=== PATIENT | female | born 1945 | race Two or more races ===

== ENCOUNTER 2023-07-02 10:45 | Inpatient (IN) | payer OTHER ==
[~2023-07-02] VITALS: Ht 160 cm; Wt 68.0 kg
[2023-07-02] MEDS ORDERED: DILTIAZEM ER120 M2 PO (13:29)
[2023-07-02] MEDS ORDERED: DIOVAN160 M1 PO (13:29)
[2023-07-02] MEDS ORDERED: NAMENDA XR28 MG PO (13:30)
[2023-07-02] MEDS ORDERED: LIPITOR20 MG PO (13:30)
[2023-07-02] MEDS ORDERED: XANAX XR0.5 MG PO (13:30)
[2023-07-02] MEDS ORDERED: METFORMIN HCL500 M3 PO (13:31)
[2023-07-02] MEDS ORDERED: AMBIEN10 MG PO (13:31)
[2023-07-07 07:05] LABS: HEMATOCRIT 38.4 % (36.0-45.00); HEMOGLOBIN 12.4 g/dL (12.0-15.00); MEAN CELL VOLUME 87.7 fL (80.00-100.00); MEAN CORPUSCULAR HEMOGLOBIN 28.4 pg (27.00-32.0); MEAN CORPUSCULAR HGB CONC 32.4 g/dl (32.0-36.0); PLATELET COUNT 336 K/uL (150-450); RED BLOOD COUNT 4.38 M/uL (4.00-6.00); RED CELL DISTRIBUTION WIDTH 15.9 % (11.5-14.5)
[2023-07-07 07:16] LABS: INR 0.94; PROTHROMBIN TIME 9.9 SECONDS (9.0-11.5)
[2023-07-07 07:45] LABS: ALBUMIN 3.1 gm/dL (3.4-5.0); BILIRUBIN TOTAL 0.71 mg/dL (0.3-1.2); CALCIUM 9.1 mg/dL (8.5-10.1); CREATININE SERUM 0.93 mg/dL (0.55-1.02); GFR 58.46; POTASSIUM 4.67 mEq/L (3.5-5.1); TOTAL PROTEIN 6.1 gm/dL (6.4-8.2)
[2023-07-07 08:10] LABS: TSH 1.26 uIU/mL (0.358-3.74)
[2023-07-07 18:11] LABS: HEMOGLOBIN 13.4 g/dL (12.0-15.00); MEAN CELL VOLUME 87.5 fL (80.00-100.00); MEAN CORPUSCULAR HEMOGLOBIN 29.2 pg (27.00-32.0); MEAN CORPUSCULAR HGB CONC 33.4 g/dl (32.0-36.0); PLATELET COUNT 324 K/uL (150-450); RED BLOOD COUNT 4.57 M/uL (4.00-6.00); RED CELL DISTRIBUTION WIDTH 16.3 % (11.5-14.5)
[2023-07-07 18:18] LABS: ALBUMIN 3.1 gm/dL (3.4-5.0); CALCIUM 8.8 mg/dL (8.5-10.1); CREATININE SERUM 0.95 mg/dL (0.55-1.02); GFR 57.04; MAGNESIUM 1.8 mg/dL (1.8-2.4); PHOSPHOROUS 3.8 mg/dL (2.5-4.9); POTASSIUM 4.08 mEq/L (3.5-5.1)
[2023-07-08 04:04] LABS: ABG PH 7.452 (7.35-7.45); ABG PO2 103.6 mmHg (80-100); ABG pCO2 38.2 mmHg (35-45); BASE EXCESS 2.2 mmol/l; SaO2 98.3 %; Tco2 27.2 mmol/l; allen test SATISFACTORY; o2 32 %; puncture site RADIAL RIGHT
[2023-07-08 06:54] LABS: URINE APPEARANCE Clear; URINE BILIRRUBIN Negative (NEGATIVE); URINE BLOOD Negative; URINE COLOR Yellow; URINE GLUCOSE Negative (NEGATIVE); URINE LEUKOCYTE Trace; URINE NITRATE Negative; URINE PROTEIN Negative (NEGATIVE); URINE UROBILINOGEN 0.2 E.U./dl
[2023-07-08 06:55] LABS: URINE BACTERIA 62.9 uL (0.0-1933); URINE EPITHELIAL CELLS 13.7 uL (0.0-38.8); URINE RBC 9.4 uL (0.0-20.8); URINE WBC 123.7 uL (0.0-23.2)
[2023-07-08 08:26] LABS: HEMATOCRIT 37.5 % (36.0-45.00); HEMOGLOBIN 12.1 g/dL (12.0-15.00); MEAN CELL VOLUME 87.9 fL (80.00-100.00); MEAN CORPUSCULAR HEMOGLOBIN 28.4 pg (27.00-32.0); MEAN CORPUSCULAR HGB CONC 32.3 g/dl (32.0-36.0); PLATELET COUNT 276 K/uL (150-450); RED BLOOD COUNT 4.27 M/uL (4.00-6.00)
[2023-07-08 08:48] LABS: ALBUMIN 2.7 gm/dL (3.4-5.0); CALCIUM 8.3 mg/dL (8.5-10.1); CREATININE SERUM 0.77 mg/dL (0.55-1.02); GFR 72.69; MAGNESIUM 1.7 mg/dL (1.8-2.4); PHOSPHOROUS 3.4 mg/dL (2.5-4.9); POTASSIUM 3.98 mEq/L (3.5-5.1)
[2023-07-09 06:37] LABS: HEMATOCRIT 38.3 % (36.0-45.00); HEMOGLOBIN 12.2 g/dL (12.0-15.00); MEAN CELL VOLUME 88.9 fL (80.00-100.00); MEAN CORPUSCULAR HEMOGLOBIN 28.3 pg (27.00-32.0); MEAN CORPUSCULAR HGB CONC 31.8 g/dl (32.0-36.0); PLATELET COUNT 276 K/uL (150-450); RED BLOOD COUNT 4.31 M/uL (4.00-6.00); RED CELL DISTRIBUTION WIDTH 16.3 % (11.5-14.5)
[2023-07-09 07:04] LABS: CALCIUM 8.8 mg/dL (8.5-10.1); CREATININE SERUM 0.81 mg/dL (0.55-1.02); GFR 68.56; MAGNESIUM 2.4 mg/dL (1.8-2.4); PHOSPHOROUS 2.5 mg/dL (2.5-4.9); POTASSIUM 3.88 mEq/L (3.5-5.1)
[2023-07-11 07:12] LABS: CALCIUM 8.7 mg/dL (8.5-10.1); CREATININE SERUM 0.69 mg/dL (0.55-1.02); GFR 82.5; MAGNESIUM 1.8 mg/dL (1.8-2.4); POTASSIUM 3.46 mEq/L (3.5-5.1)
[2023-07-11 07:53] LABS: PHOSPHOROUS 1.8 mg/dL (2.5-4.9)
[2023-07-12 08:07] LABS: ALBUMIN 2.4 gm/dL (3.4-5.0); CALCIUM 8.5 mg/dL (8.5-10.1); CREATININE SERUM 0.75 mg/dL (0.55-1.02); GFR 74.93; MAGNESIUM 1.7 mg/dL (1.8-2.4); POTASSIUM 4.16 mEq/L (3.5-5.1)
[2023-07-12 08:58] LABS: HEMATOCRIT 33.6 % (36.0-45.00); HEMOGLOBIN 11.1 g/dL (12.0-15.00); MEAN CELL VOLUME 88.2 fL (80.00-100.00); MEAN CORPUSCULAR HEMOGLOBIN 29.2 pg (27.00-32.0); MEAN CORPUSCULAR HGB CONC 33.1 g/dl (32.0-36.0); PLATELET COUNT 216 K/uL (150-450); RED BLOOD COUNT 3.81 M/uL (4.00-6.00)
[2023-07-17] MEDS ORDERED: DILTIAZEM ER120 M2 PO (12:33)
[2023-07-17] MEDS ORDERED: INTESTINEX680 M2 PO (12:33)
[2023-07-17] MEDS ORDERED: QUESTRAN LIGHT210 GM PO (12:33)
[2023-07-17] MEDS ORDERED: LIPITOR20 MG PO (12:33)
[2023-07-17] MEDS ORDERED: NAMENDA XR28 MG PO (12:33)
[2023-07-17] MEDS ORDERED: TRAMADOL HCL50 MG PO (12:33)
[2023-07-17] MEDS ORDERED: PROTONIX40 MG PO (12:33)
[2023-07-17] MEDS ORDERED: HYOSCYAMINE0.125 M1 SL (12:33)
== END 2023-07-17 12:41 | disposition home or self-care (01) | DRG 330 ==
LOC: EDUNIT# 10:45 → SURG 07-05 11:51 → SURH 07-05 11:51 → SURG 07-07 09:00
PROVIDERS: Specialist; Surgery; ADMIT Internal Medicine Geriatric Medicine; ATTEND Internal Medicine Geriatric Medicine
PROC: 30233N1 Transfusion of Nonautologous Red Blood Cells into Peripheral Vein, Percutaneous Approach (ICD-10-PCS; 2023-07-05)
PROC: 07BB4ZZ Excision of Mesenteric Lymphatic, Percutaneous Endoscopic Approach (ICD-10-PCS; 2023-07-07)
PROC: 0DTL4ZZ Resection of Transverse Colon, Percutaneous Endoscopic Approach (ICD-10-PCS; principal; 2023-07-07 09:00)
PROC: 4A12X4Z Monitoring of Cardiac Electrical Activity, External Approach (ICD-10-PCS; 2023-07-08)
PROC: BW21YZZ Computerized Tomography (CT Scan) of Abdomen and Pelvis using Other Contrast (ICD-10-PCS; 2023-07-14)
DX: C18.5 Malignant neoplasm of splenic flexure (principal); N39.0 Urinary tract infection, site not specified; B96.20 Unspecified Escherichia coli [E. coli] as the cause of diseases classified elsewhere; I11.0 Hypertensive heart disease with heart failure; E11.9 Type 2 diabetes mellitus without complications; Z79.4 Long term (current) use of insulin; R15.9 Full incontinence of feces; D64.9 Anemia, unspecified; E78.49 Other hyperlipidemia; E78.00 Pure hypercholesterolemia, unspecified; G30.9 Alzheimer's disease, unspecified; F02.80 Dementia in other diseases classified elsewhere, unspecified severity, without behavioral disturbance, psychotic disturbance, mood disturbance, and anxiety

== ENCOUNTER 2023-07-02 10:57 | Outpatient (CLI) | payer OTHER ==
[2023-07-02] MEDS ORDERED: DILTIAZEM ER120 M2 PO (13:29)
[2023-07-02] MEDS ORDERED: DIOVAN160 M1 PO (13:29)
[2023-07-02] MEDS ORDERED: LIPITOR20 MG PO (13:30)
[2023-07-02] MEDS ORDERED: NAMENDA XR28 MG PO (13:30)
[2023-07-02] MEDS ORDERED: XANAX XR0.5 MG PO (13:30)
[2023-07-02] MEDS ORDERED: AMBIEN10 MG PO (13:31)
[2023-07-02] MEDS ORDERED: METFORMIN HCL500 M3 PO (13:31)
== END 2023-07-02 11:07 | disposition home or self-care (01) ==
LOC: RAD 10:57
PROVIDERS: ATTEND Surgery
DX: R15.9 Full incontinence of feces (principal); C18.5 Malignant neoplasm of splenic flexure; D37.4 Neoplasm of uncertain behavior of colon; D12.2 Benign neoplasm of ascending colon; D12.0 Benign neoplasm of cecum

== ENCOUNTER 2023-07-22 22:21 | Inpatient (IN) | payer OTHER ==
[~2023-07-22] VITALS: Ht 160 cm; Wt 63.5 kg
[~2023-07-22 22:21] MED LIST: AMBIEN10 MG PO; DILTIAZEM ER120 M2 PO; DIOVAN160 M1 PO; HYOSCYAMINE0.125 M1 SL; INTESTINEX680 M2 PO; LIPITOR20 MG PO; METFORMIN HCL500 M3 PO; NAMENDA XR28 MG PO; PROTONIX40 MG PO; QUESTRAN LIGHT210 GM PO; TRAMADOL HCL50 MG PO; XANAX XR0.5 MG PO
[2023-07-23 00:02] LABS: PH,URINE 5.5 (5.0-8.0); URINE APPEARANCE Clear; URINE BILIRRUBIN Negative (NEGATIVE); URINE BLOOD Negative; URINE COLOR Yellow; URINE GLUCOSE Negative (NEGATIVE); URINE LEUKOCYTE Small; URINE NITRATE Negative; URINE PROTEIN Negative (NEGATIVE); URINE UROBILINOGEN 0.2 E.U./dl
[2023-07-23 00:03] LABS: URINE BACTERIA 46.5 uL (0.0-1933); URINE EPITHELIAL CELLS 7.8 uL (0.0-38.8); URINE RBC 7.4 uL (0.0-20.8)
[2023-07-23 00:51] LABS: HEMATOCRIT 37.7 % (36.0-45.00); HEMOGLOBIN 12.4 g/dL (12.0-15.00); MEAN CELL VOLUME 85.4 fL (80.00-100.00); MEAN CORPUSCULAR HEMOGLOBIN 28.1 pg (27.00-32.0); MEAN CORPUSCULAR HGB CONC 32.9 g/dl (32.0-36.0); PLATELET COUNT 723 K/uL (150-450); RED BLOOD COUNT 4.41 M/uL (4.00-6.00); RED CELL DISTRIBUTION WIDTH 16.4 % (11.5-14.5)
[2023-07-23 00:59] LABS: ALBUMIN 2.6 gm/dL (3.4-5.0); BILIRUBIN TOTAL 0.2 mg/dL (0.3-1.2); CALCIUM 8.9 mg/dL (8.5-10.1); CREATININE SERUM 0.62 mg/dL (0.55-1.02); GFR 93.34; GLOBULINA 4.4 G/DL (2.4-3.5)
[2023-07-23 01:00] LABS: INR 1.09; PARTIAL THROMBOPLASTIN TIME 26.6 SECONDS (22.0-34.0); PROTHROMBIN TIME 11.4 SECONDS (9.0-11.5)
[2023-07-23 01:15] LABS: POTASSIUM 2.61 mEq/L (3.5-5.1)
[2023-07-24 08:35] LABS: HEMATOCRIT 30.6 % (36.0-45.00); HEMOGLOBIN 10.3 g/dL (12.0-15.00); MEAN CELL VOLUME 86.6 fL (80.00-100.00); MEAN CORPUSCULAR HEMOGLOBIN 29.2 pg (27.00-32.0); MEAN CORPUSCULAR HGB CONC 33.7 g/dl (32.0-36.0); PLATELET COUNT 633 K/uL (150-450); RED BLOOD COUNT 3.54 M/uL (4.00-6.00); RED CELL DISTRIBUTION WIDTH 16.1 % (11.5-14.5)
[2023-07-24 08:38] LABS: ALBUMIN 2.2 gm/dL (3.4-5.0); BILIRUBIN TOTAL 0.18 mg/dL (0.3-1.2); CALCIUM 8.7 mg/dL (8.5-10.1); CREATININE SERUM 0.57 mg/dL (0.55-1.02); GFR 102.85; GLOBULINA 3.2 G/DL (2.4-3.5); POTASSIUM 3.46 mEq/L (3.5-5.1); TOTAL PROTEIN 5.4 gm/dL (6.4-8.2)
[2023-07-24 08:40] LABS: C-REACTIVE PROTEIN 3.53 MG/DL (0.00-0.29)
[2023-07-25 08:17] LABS: CALCIUM 8.5 mg/dL (8.5-10.1); CREATININE SERUM 0.46 mg/dL (0.55-1.02); GFR 131.72; MAGNESIUM 1.7 mg/dL (1.8-2.4); PHOSPHOROUS 2.8 mg/dL (2.5-4.9); POTASSIUM 3.4 mEq/L (3.5-5.1)
[2023-07-27 07:35] LABS: ALBUMIN 1.9 gm/dL (3.4-5.0); BILIRUBIN TOTAL 0.16 mg/dL (0.3-1.2); CREATININE SERUM 0.45 mg/dL (0.55-1.02); GFR 135.1; GLOBULINA 2.7 G/DL (2.4-3.5); POTASSIUM 3.09 mEq/L (3.5-5.1); TOTAL PROTEIN 4.6 gm/dL (6.4-8.2)
[2023-07-29 07:44] LABS: HEMATOCRIT 29.4 % (36.0-45.00); HEMOGLOBIN 9.8 g/dL (12.0-15.00); MEAN CELL VOLUME 86.4 fL (80.00-100.00); MEAN CORPUSCULAR HEMOGLOBIN 28.8 pg (27.00-32.0); MEAN CORPUSCULAR HGB CONC 33.3 g/dl (32.0-36.0); PLATELET COUNT 364 K/uL (150-450); RED CELL DISTRIBUTION WIDTH 16.6 % (11.5-14.5)
[2023-07-29 08:12] LABS: CALCIUM 8.3 mg/dL (8.5-10.1); CREATININE SERUM 0.43 mg/dL (0.55-1.02); GFR 142.38; PHOSPHOROUS 2.2 mg/dL (2.5-4.9)
[2023-07-29 08:27] LABS: MAGNESIUM 1.4 mg/dL (1.8-2.4)
[2023-07-29 08:28] LABS: POTASSIUM 2.78 mEq/L (3.5-5.1)
[2023-07-30 08:32] LABS: CALCIUM 8.2 mg/dL (8.5-10.1); CREATININE SERUM 0.46 mg/dL (0.55-1.02); GFR 131.72; MAGNESIUM 1.6 mg/dL (1.8-2.4); POTASSIUM 3.4 mEq/L (3.5-5.1)
[2023-07-30] MEDS ORDERED: IMODIUM A-D2 MG PO (13:33)
[2023-07-30] MEDS ORDERED: PROBIOTIC1 EAC4 PO (13:34)
== END 2023-07-30 14:27 | disposition home or self-care (01) | DRG 392 ==
LOC: ER 22:21 → SURG 07-23 10:37
PROVIDERS: General Practice; Internal Medicine; Internal Medicine Geriatric Medicine; ADMIT Surgery; ATTEND Surgery
PROC: BW21YZZ Computerized Tomography (CT Scan) of Abdomen and Pelvis using Other Contrast (ICD-10-PCS; principal; 2023-07-22)
PROC: 4A12X4Z Monitoring of Cardiac Electrical Activity, External Approach (ICD-10-PCS; 2023-07-23)
DX: K52.89 Other specified noninfective gastroenteritis and colitis (principal); K56.0 Paralytic ileus; C18.5 Malignant neoplasm of splenic flexure; E87.6 Hypokalemia; G30.9 Alzheimer's disease, unspecified; F02.80 Dementia in other diseases classified elsewhere, unspecified severity, without behavioral disturbance, psychotic disturbance, mood disturbance, and anxiety; Z93.2 Ileostomy status; I10 Essential (primary) hypertension

== ENCOUNTER 2023-08-12 13:45 | Inpatient (IN) | payer OTHER ==
[~2023-08-12] VITALS: Ht 152.4 cm; Wt 61.2 kg
[~2023-08-12 13:45] MED LIST changes: +IMODIUM A-D2 MG PO; +PROBIOTIC1 EAC4 PO
[2023-08-12] MEDS ORDERED: LIPITOR40 MG (14:16)
[2023-08-12] MEDS ORDERED: NAMENDA5 MG (14:16)
[2023-08-12 16:50] LABS: HEMATOCRIT 33.4 % (36.0-45.00); MEAN CELL VOLUME 86.1 fL (80.00-100.00); MEAN CORPUSCULAR HEMOGLOBIN 28.3 pg (27.00-32.0); MEAN CORPUSCULAR HGB CONC 32.9 g/dl (32.0-36.0); PLATELET COUNT 471 K/uL (150-450); RED BLOOD COUNT 3.88 M/uL (4.00-6.00); RED CELL DISTRIBUTION WIDTH 16.9 % (11.5-14.5)
[2023-08-12 17:13] LABS: CALCIUM 9.3 mg/dL (8.5-10.1); CREATININE SERUM 0.78 mg/dL (0.55-1.02); GFR 71.81; POTASSIUM 3.95 mEq/L (3.5-5.1)
[2023-08-12 18:59] LABS: PH,URINE 5.5 (5.0-8.0); URINE APPEARANCE Cloudy; URINE BILIRRUBIN Negative (NEGATIVE); URINE BLOOD Trace; URINE COLOR Yellow; URINE GLUCOSE Negative (NEGATIVE); URINE LEUKOCYTE Large; URINE NITRATE Negative; URINE PROTEIN 30 (NEGATIVE); URINE UROBILINOGEN 0.2 E.U./dl
[2023-08-12 19:00] LABS: URINE EPITHELIAL CELLS 7.5 uL (0.0-38.8); URINE RBC 19.6 uL (0.0-20.8); URINE WBC 893.1 uL (0.0-23.2)
[2023-08-12 19:02] LABS: URINE BACTERIA > 9821.5 uL (0.0-1933)
[2023-08-13 06:59] LABS: HEMATOCRIT 26.8 % (36.0-45.00); MEAN CELL VOLUME 85.4 fL (80.00-100.00); MEAN CORPUSCULAR HEMOGLOBIN 28.3 pg (27.00-32.0); MEAN CORPUSCULAR HGB CONC 33.1 g/dl (32.0-36.0); PLATELET COUNT 385 K/uL (150-450); RED BLOOD COUNT 3.14 M/uL (4.00-6.00); RED CELL DISTRIBUTION WIDTH 17.3 % (11.5-14.5)
[2023-08-13 07:01] LABS: HEMOGLOBIN 8.9 g/dL (12.0-15.00)
[2023-08-13 12:15] LABS: ALBUMIN 1.9 gm/dL (3.4-5.0); BILIRUBIN TOTAL 0.42 mg/dL (0.3-1.2); CALCIUM 8.8 mg/dL (8.5-10.1); CREATININE SERUM 0.69 mg/dL (0.55-1.02); GFR 82.72; MAGNESIUM 1.7 mg/dL (1.8-2.4); POTASSIUM 3.57 mEq/L (3.5-5.1); T4 FREE 1.47 NG/ML (0.76-1.46); TOTAL PROTEIN 5.9 gm/dL (6.4-8.2); TSH 0.646 uIU/mL (0.358-3.74)
[2023-08-14 06:48] LABS: HEMATOCRIT 28.4 % (36.0-45.00); HEMOGLOBIN 9.4 g/dL (12.0-15.00); MEAN CELL VOLUME 85.9 fL (80.00-100.00); MEAN CORPUSCULAR HEMOGLOBIN 28.4 pg (27.00-32.0); PLATELET COUNT 463 K/uL (150-450); RED CELL DISTRIBUTION WIDTH 16.9 % (11.5-14.5)
[2023-08-14 07:24] LABS: ALBUMIN 1.7 gm/dL (3.4-5.0); BILIRUBIN TOTAL 0.32 mg/dL (0.3-1.2); C-REACTIVE PROTEIN 29.9 MG/DL (0.00-0.29); CALCIUM 8.3 mg/dL (8.5-10.1); CREATININE SERUM 0.42 mg/dL (0.55-1.02); GFR 146.69; GLOBULINA 3.7 G/DL (2.4-3.5); MAGNESIUM 1.6 mg/dL (1.8-2.4); PHOSPHOROUS 2.6 mg/dL (2.5-4.9); POTASSIUM 3.23 mEq/L (3.5-5.1); TOTAL PROTEIN 5.4 gm/dL (6.4-8.2)
[2023-08-14 10:55] LABS: ABG PH 7.459 (7.35-7.45)
[2023-08-14 10:56] LABS: ABG PO2 74.6 mmHg (80-100); BICARBONATE 18.1 mmol/l (23-25); Tco2 18.9 mmol/l; allen test SATISFACTORY; o2 21 %; puncture site RADIAL LEFT
[2023-08-14 10:57] LABS: SaO2 95.5 %
[2023-08-15 19:44] LABS: HEMOGLOBIN 11.6 g/dL (12.0-15.00); MEAN CELL VOLUME 84.5 fL (80.00-100.00); MEAN CORPUSCULAR HEMOGLOBIN 28.1 pg (27.00-32.0); MEAN CORPUSCULAR HGB CONC 33.2 g/dl (32.0-36.0); PLATELET COUNT 442 K/uL (150-450); RED BLOOD COUNT 4.14 M/uL (4.00-6.00); RED CELL DISTRIBUTION WIDTH 16.9 % (11.5-14.5)
[2023-08-16 07:45] LABS: HEMATOCRIT 34.4 % (36.0-45.00); HEMOGLOBIN 11.1 g/dL (12.0-15.00); MEAN CELL VOLUME 84.4 fL (80.00-100.00); MEAN CORPUSCULAR HEMOGLOBIN 27.3 pg (27.00-32.0); MEAN CORPUSCULAR HGB CONC 32.4 g/dl (32.0-36.0); PLATELET COUNT 433 K/uL (150-450); RED BLOOD COUNT 4.08 M/uL (4.00-6.00); RED CELL DISTRIBUTION WIDTH 17.3 % (11.5-14.5)
[2023-08-16 08:46] LABS: ALBUMIN 1.6 gm/dL (3.4-5.0); BILIRUBIN TOTAL 0.21 mg/dL (0.3-1.2); CALCIUM 8.8 mg/dL (8.5-10.1); CREATININE SERUM 0.43 mg/dL (0.55-1.02); GFR 142.38; GLOBULINA 3.8 G/DL (2.4-3.5); MAGNESIUM 1.8 mg/dL (1.8-2.4); PHOSPHOROUS 3.3 mg/dL (2.5-4.9); POTASSIUM 3.92 mEq/L (3.5-5.1); TOTAL PROTEIN 5.4 gm/dL (6.4-8.2)
[2023-08-16 08:48] LABS: C-REACTIVE PROTEIN 18.1 MG/DL (0.00-0.29)
[2023-08-17 08:19] LABS: HEMATOCRIT 35.6 % (36.0-45.00); HEMOGLOBIN 11.8 g/dL (12.0-15.00); MEAN CELL VOLUME 84.6 fL (80.00-100.00); MEAN CORPUSCULAR HEMOGLOBIN 28.1 pg (27.00-32.0); MEAN CORPUSCULAR HGB CONC 33.2 g/dl (32.0-36.0); PLATELET COUNT 480 K/uL (150-450); RED BLOOD COUNT 4.21 M/uL (4.00-6.00); RED CELL DISTRIBUTION WIDTH 17.1 % (11.5-14.5)
[2023-08-17 08:54] LABS: CALCIUM 8.8 mg/dL (8.5-10.1); CREATININE SERUM 0.41 mg/dL (0.55-1.02); GFR 150.42; MAGNESIUM 1.8 mg/dL (1.8-2.4); PHOSPHOROUS 2.7 mg/dL (2.5-4.9); POTASSIUM 4.14 mEq/L (3.5-5.1)
[2023-08-18 06:43] LABS: HEMATOCRIT 39.9 % (36.0-45.00); HEMOGLOBIN 13.1 g/dL (12.0-15.00); MEAN CELL VOLUME 85.8 fL (80.00-100.00); MEAN CORPUSCULAR HEMOGLOBIN 28.1 pg (27.00-32.0); MEAN CORPUSCULAR HGB CONC 32.8 g/dl (32.0-36.0); PLATELET COUNT 592 K/uL (150-450); RED BLOOD COUNT 4.65 M/uL (4.00-6.00)
[2023-08-18 06:44] LABS: INR 1.11; PARTIAL THROMBOPLASTIN TIME 29.7 SECONDS (22.0-34.0); PROTHROMBIN TIME 11.6 SECONDS (9.0-11.5)
[2023-08-18 07:01] LABS: ALBUMIN 1.8 gm/dL (3.4-5.0); ALKALINE PHOSPHATASE 72 U/L (50-136); ALT/SGPT 10 U/L (12-78); ANION GAP 10 (10.0-20.0); AST/SGOT 6 U/L (15-37); BILIRUBIN TOTAL 0.23 mg/dL (0.3-1.2); BILIRUBIN,CONJUGATED < 0.10 mg/dL (0.0-0.2); BILIRUBIN,UNCONJUGATED 0.13 mg/dL (0.0-0.6); BLOOD UREA NITROGEN 24 mg/dL (7-18); BUN CREA RATIO 56 (7.0-25.0); CALCIUM 9.1 mg/dL (8.5-10.1); CARBON DIOXIDE 23 mEq/L (21-32); CHLORIDE 112 mmol/L (98-107); CHOL HDL RATIO 3.5 (0-5.0); CHOLESTEROL 88 mg/dL (0-200); CREATININE SERUM 0.43 mg/dL (0.55-1.02); GFR 142.38; GLOBULINA 3.5 G/DL (2.4-3.5); GLUCOSE FASTING 136 mg/dL (65-100); HDL 25 mg/dl (40-60); LDL 32 mg/dl (0-130); OSMOLALITY SERUM 287 MOSM/KG (275-295); PHOSPHOROUS 2.6 mg/dL (2.5-4.9); SODIUM 141 mmol/L (136-145); TOTAL IRON BINDING CAPACITY 171 ug/dl (250-450); TOTAL PROTEIN 5.3 gm/dL (6.4-8.2); TRIGLYCERIDES 153 mg/dL (0-150); VLDL 30 (0-39)
[2023-08-18 10:11] LABS: UREA CLEARANCE 22.9 ML/MIN
[2023-08-20 06:55] LABS: CREATININE SERUM 0.41 mg/dL (0.55-1.02); GFR 150.42; MAGNESIUM 1.5 mg/dL (1.8-2.4); PHOSPHOROUS 2.4 mg/dL (2.5-4.9); POTASSIUM 3.71 mEq/L (3.5-5.1)
[2023-08-20 07:05] LABS: HEMATOCRIT 34.8 % (36.0-45.00); HEMOGLOBIN 11.4 g/dL (12.0-15.00); MEAN CELL VOLUME 84.1 fL (80.00-100.00); MEAN CORPUSCULAR HEMOGLOBIN 27.6 pg (27.00-32.0); MEAN CORPUSCULAR HGB CONC 32.8 g/dl (32.0-36.0); PLATELET COUNT 520 K/uL (150-450); RED BLOOD COUNT 4.14 M/uL (4.00-6.00); RED CELL DISTRIBUTION WIDTH 16.3 % (11.5-14.5)
[2023-08-20 23:38] LABS: ABG PH 7.477 (7.35-7.45); ABG PO2 68.6 mmHg (80-100); ABG pCO2 35.5 mmHg (35-45); BASE EXCESS 2.5 mmol/l; BICARBONATE 25.7 mmol/l (23-25); SaO2 94.9 %; Tco2 26.8 mmol/l; allen test SATISFACTORY; o2 21 %; puncture site RADIAL LEFT
[2023-08-21 07:09] LABS: HEMOGLOBIN 11.2 g/dL (12.0-15.00); MEAN CELL VOLUME 84.2 fL (80.00-100.00); MEAN CORPUSCULAR HEMOGLOBIN 27.7 pg (27.00-32.0); MEAN CORPUSCULAR HGB CONC 32.9 g/dl (32.0-36.0); PLATELET COUNT 512 K/uL (150-450); RED BLOOD COUNT 4.04 M/uL (4.00-6.00); RED CELL DISTRIBUTION WIDTH 16.4 % (11.5-14.5)
[2023-08-21 07:23] LABS: CALCIUM 8.9 mg/dL (8.5-10.1); CREATININE SERUM 0.53 mg/dL (0.55-1.02); GFR 111.86; MAGNESIUM 1.6 mg/dL (1.8-2.4); PHOSPHOROUS 3.1 mg/dL (2.5-4.9); POTASSIUM 3.73 mEq/L (3.5-5.1)
[2023-08-21 07:34] LABS: C-REACTIVE PROTEIN 1.85 MG/DL (0.00-0.29)
[2023-08-23 08:48] LABS: HEMOGLOBIN 12.5 g/dL (12.0-15.00); MEAN CELL VOLUME 83.5 fL (80.00-100.00); MEAN CORPUSCULAR HEMOGLOBIN 27.6 pg (27.00-32.0); PLATELET COUNT 431 K/uL (150-450); RED BLOOD COUNT 4.55 M/uL (4.00-6.00)
[2023-08-23 08:58] LABS: CALCIUM 8.7 mg/dL (8.5-10.1); CREATININE SERUM 0.34 mg/dL (0.55-1.02); GFR 186.7; MAGNESIUM 1.5 mg/dL (1.8-2.4); PHOSPHOROUS 2.9 mg/dL (2.5-4.9); POTASSIUM 3.29 mEq/L (3.5-5.1)
[2023-08-25 08:29] LABS: HEMATOCRIT 38.3 % (36.0-45.00); HEMOGLOBIN 12.8 g/dL (12.0-15.00); MEAN CELL VOLUME 83.1 fL (80.00-100.00); MEAN CORPUSCULAR HEMOGLOBIN 27.8 pg (27.00-32.0); MEAN CORPUSCULAR HGB CONC 33.4 g/dl (32.0-36.0); RED BLOOD COUNT 4.61 M/uL (4.00-6.00); RED CELL DISTRIBUTION WIDTH 16.8 % (11.5-14.5)
[2023-08-25 08:40] LABS: INR 1.09; PARTIAL THROMBOPLASTIN TIME 23.7 SECONDS (22.0-34.0); PROTHROMBIN TIME 11.4 SECONDS (9.0-11.5)
[2023-08-25 09:09] LABS: PLATELET COUNT 380 K/uL (150-450)
[2023-08-25 09:19] LABS: ALBUMIN 1.9 gm/dL (3.4-5.0); BILIRUBIN TOTAL 0.41 mg/dL (0.3-1.2); BILIRUBIN,CONJUGATED 0.19 mg/dL (0.0-0.2); BILIRUBIN,UNCONJUGATED 0.22 mg/dL (0.0-0.6); CALCIUM 8.7 mg/dL (8.5-10.1); CHOL HDL RATIO 2.7 (0-5.0); CREATININE SERUM 0.45 mg/dL (0.55-1.02); GFR 135.1; GLOBULINA 3.3 G/DL (2.4-3.5); MAGNESIUM 1.7 mg/dL (1.8-2.4); POTASSIUM 3.16 mEq/L (3.5-5.1); TOTAL PROTEIN 5.2 gm/dL (6.4-8.2)
[2023-08-25 13:18] LABS: UREA CLEARANCE 33.8 ML/MIN
[2023-08-25 13:49] LABS: URINE APPEARANCE Clear; URINE BILIRRUBIN Negative (NEGATIVE); URINE BLOOD Negative; URINE COLOR Yellow; URINE GLUCOSE Negative (NEGATIVE); URINE LEUKOCYTE Negative; URINE NITRATE Negative; URINE PROTEIN Negative (NEGATIVE); URINE UROBILINOGEN 0.2 E.U./dl
[2023-08-25 13:53] LABS: URINE BACTERIA 12.5 uL (0.0-1933); URINE EPITHELIAL CELLS 6.4 uL (0.0-38.8); URINE RBC 6.1 uL (0.0-20.8); URINE WBC 10.9 uL (0.0-23.2)
[2023-08-26 08:02] LABS: HEMATOCRIT 32.4 % (36.0-45.00); HEMOGLOBIN 10.9 g/dL (12.0-15.00); MEAN CELL VOLUME 83.6 fL (80.00-100.00); MEAN CORPUSCULAR HEMOGLOBIN 28.2 pg (27.00-32.0); MEAN CORPUSCULAR HGB CONC 33.7 g/dl (32.0-36.0); PLATELET COUNT 381 K/uL (150-450); RED BLOOD COUNT 3.87 M/uL (4.00-6.00); RED CELL DISTRIBUTION WIDTH 16.2 % (11.5-14.5)
[2023-08-27 07:11] LABS: HEMATOCRIT 33.5 % (36.0-45.00); HEMOGLOBIN 11.1 g/dL (12.0-15.00); MEAN CELL VOLUME 84.8 fL (80.00-100.00); MEAN CORPUSCULAR HEMOGLOBIN 28.1 pg (27.00-32.0); MEAN CORPUSCULAR HGB CONC 33.2 g/dl (32.0-36.0); PLATELET COUNT 355 K/uL (150-450); RED BLOOD COUNT 3.95 M/uL (4.00-6.00); RED CELL DISTRIBUTION WIDTH 16.7 % (11.5-14.5)
[2023-08-27 07:55] LABS: CALCIUM 8.3 mg/dL (8.5-10.1); CREATININE SERUM 0.36 mg/dL (0.55-1.02); GFR 174.78; MAGNESIUM 1.6 mg/dL (1.8-2.4); PHOSPHOROUS 2.2 mg/dL (2.5-4.9)
[2023-08-27 08:59] LABS: POTASSIUM 2.66 mEq/L (3.5-5.1)
[2023-08-28 14:12] LABS: CALCIUM 8.6 mg/dL (8.5-10.1); CREATININE SERUM 0.3 mg/dL (0.55-1.02); GFR 215.71; MAGNESIUM 1.7 mg/dL (1.8-2.4); PHOSPHOROUS 2.4 mg/dL (2.5-4.9)
[2023-08-28 14:40] LABS: POTASSIUM 2.74 mEq/L (3.5-5.1)
[2023-08-28] MEDS ORDERED: HYDRALAZINE HCL50 MG (14:46)
[2023-08-29 03:58] LABS: HEMATOCRIT 34.2 % (36.0-45.00); HEMOGLOBIN 11.2 g/dL (12.0-15.00); MEAN CELL VOLUME 83.5 fL (80.00-100.00); MEAN CORPUSCULAR HEMOGLOBIN 27.4 pg (27.00-32.0); MEAN CORPUSCULAR HGB CONC 32.8 g/dl (32.0-36.0); PLATELET COUNT 357 K/uL (150-450); RED BLOOD COUNT 4.09 M/uL (4.00-6.00); RED CELL DISTRIBUTION WIDTH 16.6 % (11.5-14.5)
[2023-08-29 04:20] LABS: CALCIUM 8.1 mg/dL (8.5-10.1); CREATININE SERUM 0.4 mg/dL (0.55-1.02); GFR 154.77; MAGNESIUM 1.7 mg/dL (1.8-2.4); PHOSPHOROUS 2.9 mg/dL (2.5-4.9)
[2023-08-29 08:31] LABS: POTASSIUM 2.68 mEq/L (3.5-5.1)
[2023-08-30 09:46] LABS: CALCIUM 8.7 mg/dL (8.5-10.1); CREATININE SERUM 0.56 mg/dL (0.55-1.02); GFR 104.97; MAGNESIUM 1.6 mg/dL (1.8-2.4); POTASSIUM 3.01 mEq/L (3.5-5.1)
[2023-08-30 09:54] LABS: PHOSPHOROUS 1.9 mg/dL (2.5-4.9)
[2023-09-01 07:21] LABS: HEMATOCRIT 34.2 % (36.0-45.00); HEMOGLOBIN 11.2 g/dL (12.0-15.00); MEAN CELL VOLUME 84.8 fL (80.00-100.00); MEAN CORPUSCULAR HEMOGLOBIN 27.7 pg (27.00-32.0); MEAN CORPUSCULAR HGB CONC 32.6 g/dl (32.0-36.0); PLATELET COUNT 403 K/uL (150-450); RED BLOOD COUNT 4.04 M/uL (4.00-6.00); RED CELL DISTRIBUTION WIDTH 16.9 % (11.5-14.5)
[2023-09-01 07:28] LABS: ALBUMIN 2.3 gm/dL (3.4-5.0); BILIRUBIN TOTAL 0.32 mg/dL (0.3-1.2); CALCIUM 8.8 mg/dL (8.5-10.1); CREATININE SERUM 0.48 mg/dL (0.55-1.02); GFR 125.41; GLOBULINA 3.4 G/DL (2.4-3.5); MAGNESIUM 1.6 mg/dL (1.8-2.4); PHOSPHOROUS 2.6 mg/dL (2.5-4.9); POTASSIUM 3.53 mEq/L (3.5-5.1); TOTAL PROTEIN 5.7 gm/dL (6.4-8.2)
[2023-09-02 07:13] LABS: CALCIUM 8.7 mg/dL (8.5-10.1); CREATININE SERUM 0.44 mg/dL (0.55-1.02); GFR 138.65; MAGNESIUM 1.6 mg/dL (1.8-2.4); PHOSPHOROUS 3.2 mg/dL (2.5-4.9); POTASSIUM 3.27 mEq/L (3.5-5.1)
[2023-09-03 11:42] LABS: CREATININE SERUM 0.48 mg/dL (0.55-1.02); GFR 125.41; MAGNESIUM 1.6 mg/dL (1.8-2.4); PHOSPHOROUS 2.3 mg/dL (2.5-4.9); POTASSIUM 3.61 mEq/L (3.5-5.1)
[2023-09-05] MEDS ORDERED: MAGNESIUM CHLOR70 MG PO (12:40)
[2023-09-05] MEDS ORDERED: NAMENDA XR28 MG PO (12:40)
[2023-09-05] MEDS ORDERED: MICRO-K 1010 MEQ PO (12:40)
[2023-09-05] MEDS ORDERED: INTESTINEX680 M2 PO (12:40)
[2023-09-05] MEDS ORDERED: HYOSCYAMINE0.125 M1 SL (12:40)
[2023-09-05] MEDS ORDERED: PEPCID AC20 MG PO (12:40)
[2023-09-05] MEDS ORDERED: LOPERAMIDE2 MG PO (12:40)
[2023-09-05] MEDS ORDERED: DILTIAZEM ER120 M2 PO (12:40)
[2023-09-05] MEDS ORDERED: APETIGEN P12.5 MG/15 PO (12:40)
[2023-09-05] MEDS ORDERED: ALPRAZOLAM1 MG PO (12:40)
[2023-09-05] MEDS ORDERED: AMBIEN10 MG PO (12:40)
[2023-09-05] MEDS ORDERED: FOLIVANE-F CAP1 EACH PO (12:49)
[2023-09-05] MEDS ORDERED: B COMPLEX PLUS PO (12:49)
== END 2023-09-05 13:43 | disposition home or self-care (01) | DRG 371 ==
LOC: ER 13:45 → EDBD 21:54 → SURG 21:54 → ICU 21:54 → SURH 21:54 → ICU 08-15 01:52 → SURG 08-19 14:33
PROVIDERS: Emergency Medicine; Internal Medicine; Internal Medicine Infectious Disease; Specialist; ADMIT Internal Medicine Geriatric Medicine; ATTEND Internal Medicine Geriatric Medicine
PROC: BW21YZZ Computerized Tomography (CT Scan) of Abdomen and Pelvis using Other Contrast (ICD-10-PCS; 2023-08-12)
PROC: 0W9G30Z Drainage of Peritoneal Cavity with Drainage Device, Percutaneous Approach (ICD-10-PCS; principal; 2023-08-13)
PROC: 4A12X4Z Monitoring of Cardiac Electrical Activity, External Approach (ICD-10-PCS; 2023-08-14)
PROC: 30233N1 Transfusion of Nonautologous Red Blood Cells into Peripheral Vein, Percutaneous Approach (ICD-10-PCS; 2023-08-14)
PROC: 0W9G3ZZ Drainage of Peritoneal Cavity, Percutaneous Approach (ICD-10-PCS; 2023-08-15)
PROC: 0JD83ZZ Extraction of Abdomen Subcutaneous Tissue and Fascia, Percutaneous Approach (ICD-10-PCS; 2023-08-15)
PROC: BW21YZZ Computerized Tomography (CT Scan) of Abdomen and Pelvis using Other Contrast (ICD-10-PCS; 2023-08-22)
DX: K65.1 Peritoneal abscess (principal); A41.9 Sepsis, unspecified organism; J18.9 Pneumonia, unspecified organism; N39.0 Urinary tract infection, site not specified; N32.1 Vesicointestinal fistula; L03.311 Cellulitis of abdominal wall; D64.9 Anemia, unspecified; B96.20 Unspecified Escherichia coli [E. coli] as the cause of diseases classified elsewhere; E86.0 Dehydration; B95.2 Enterococcus as the cause of diseases classified elsewhere; B96.89 Other specified bacterial agents as the cause of diseases classified elsewhere; G30.9 Alzheimer's disease, unspecified; F02.80 Dementia in other diseases classified elsewhere, unspecified severity, without behavioral disturbance, psychotic disturbance, mood disturbance, and anxiety; E78.5 Hyperlipidemia, unspecified; Z20.822 Contact with and (suspected) exposure to COVID-19; G47.39 Other sleep apnea; E11.9 Type 2 diabetes mellitus without complications; Z79.4 Long term (current) use of insulin

== ENCOUNTER 2023-09-12 20:52 | Inpatient (IN) | payer OTHER ==
[~2023-09-12] VITALS: Ht 160 cm; Wt 0.5 kg
[~2023-09-12 20:52] MED LIST changes: +ALPRAZOLAM1 MG PO; +APETIGEN P12.5 MG/15 PO; +B COMPLEX PLUS PO; +FOLIVANE-F CAP1 EACH PO; +HYDRALAZINE HCL50 MG; +LIPITOR40 MG; +LOPERAMIDE2 MG PO; +MAGNESIUM CHLOR70 MG PO; +MICRO-K 1010 MEQ PO; +NAMENDA5 MG; +PEPCID AC20 MG PO
[2023-09-13 17:30] LABS: ALBUMIN 2.5 gm/dL (3.4-5.0); BILIRUBIN TOTAL 0.26 mg/dL (0.3-1.2); CALCIUM 9.6 mg/dL (8.5-10.1); CREATININE SERUM 0.52 mg/dL (0.55-1.02); GFR 114.34; GLOBULINA 3.7 G/DL (2.4-3.5); POTASSIUM 4.01 mEq/L (3.5-5.1); TOTAL PROTEIN 6.2 gm/dL (6.4-8.2)
[2023-09-13 17:46] LABS: INR 1.05; PARTIAL THROMBOPLASTIN TIME 28.2 SECONDS (22.0-34.0)
[2023-09-13 18:33] LABS: HEMATOCRIT 33.6 % (36.0-45.00); MEAN CELL VOLUME 85.8 fL (80.00-100.00); MEAN CORPUSCULAR HEMOGLOBIN 28.2 pg (27.00-32.0); MEAN CORPUSCULAR HGB CONC 32.8 g/dl (32.0-36.0); PLATELET COUNT 336 K/uL (150-450); RED BLOOD COUNT 3.92 M/uL (4.00-6.00); RED CELL DISTRIBUTION WIDTH 17.7 % (11.5-14.5)
[2023-09-14 07:18] LABS: ALBUMIN 2.5 gm/dL (3.4-5.0); CALCIUM 9.1 mg/dL (8.5-10.1); CREATININE SERUM 0.5 mg/dL (0.55-1.02); GFR 119.64; PHOSPHOROUS 3.4 mg/dL (2.5-4.9); POTASSIUM 3.43 mEq/L (3.5-5.1)
[2023-09-14 07:31] LABS: MAGNESIUM 1.4 mg/dL (1.8-2.4)
[2023-09-14 07:50] LABS: HEMATOCRIT 34.1 % (36.0-45.00); HEMOGLOBIN 11.3 g/dL (12.0-15.00); MEAN CELL VOLUME 84.6 fL (80.00-100.00); MEAN CORPUSCULAR HEMOGLOBIN 28.2 pg (27.00-32.0); MEAN CORPUSCULAR HGB CONC 33.3 g/dl (32.0-36.0); PLATELET COUNT 339 K/uL (150-450); RED BLOOD COUNT 4.03 M/uL (4.00-6.00); RED CELL DISTRIBUTION WIDTH 17.5 % (11.5-14.5)
[2023-09-17 06:53] LABS: HEMATOCRIT 32.7 % (36.0-45.00); HEMOGLOBIN 10.9 g/dL (12.0-15.00); MEAN CELL VOLUME 85.6 fL (80.00-100.00); MEAN CORPUSCULAR HEMOGLOBIN 28.5 pg (27.00-32.0); MEAN CORPUSCULAR HGB CONC 33.2 g/dl (32.0-36.0); PLATELET COUNT 339 K/uL (150-450); RED BLOOD COUNT 3.82 M/uL (4.00-6.00); RED CELL DISTRIBUTION WIDTH 17.2 % (11.5-14.5)
[2023-09-17 07:00] LABS: CALCIUM 8.6 mg/dL (8.5-10.1); CREATININE SERUM 0.47 mg/dL (0.55-1.02); GFR 128.49; MAGNESIUM 1.5 mg/dL (1.8-2.4); PHOSPHOROUS 3.5 mg/dL (2.5-4.9); POTASSIUM 3.22 mEq/L (3.5-5.1)
[2023-09-18 06:25] LABS: HEMATOCRIT 31.8 % (36.0-45.00); HEMOGLOBIN 10.5 g/dL (12.0-15.00); MEAN CELL VOLUME 85.2 fL (80.00-100.00); MEAN CORPUSCULAR HEMOGLOBIN 28.3 pg (27.00-32.0); MEAN CORPUSCULAR HGB CONC 33.2 g/dl (32.0-36.0); PLATELET COUNT 342 K/uL (150-450); RED BLOOD COUNT 3.73 M/uL (4.00-6.00); RED CELL DISTRIBUTION WIDTH 17.6 % (11.5-14.5)
[2023-09-18 07:17] LABS: CALCIUM 8.8 mg/dL (8.5-10.1); CREATININE SERUM 0.54 mg/dL (0.55-1.02); GFR 109.47; MAGNESIUM 1.8 mg/dL (1.8-2.4); PHOSPHOROUS 3.6 mg/dL (2.5-4.9); POTASSIUM 3.22 mEq/L (3.5-5.1)
[2023-09-19] MEDS ORDERED: HYDRALAZINE HCL50 MG (10:09)
[2023-09-19] MEDS ORDERED: METFORMIN HCL500 M4 (10:09)
[2023-09-19] MEDS ORDERED: DILTIAZEM ER120 M2 (10:09)
[2023-09-19] MEDS ORDERED: VALSARTAN160 MG (10:09)
[2023-09-20 08:10] LABS: HEMATOCRIT 33.7 % (36.0-45.00); HEMOGLOBIN 11.2 g/dL (12.0-15.00); MEAN CELL VOLUME 83.8 fL (80.00-100.00); MEAN CORPUSCULAR HGB CONC 33.4 g/dl (32.0-36.0); PLATELET COUNT 371 K/uL (150-450); RED BLOOD COUNT 4.02 M/uL (4.00-6.00); RED CELL DISTRIBUTION WIDTH 17.8 % (11.5-14.5)
[2023-09-20 08:36] LABS: CALCIUM 8.8 mg/dL (8.5-10.1); CREATININE SERUM 0.5 mg/dL (0.55-1.02); GFR 119.64; MAGNESIUM 1.6 mg/dL (1.8-2.4); POTASSIUM 3.24 mEq/L (3.5-5.1)
[2023-09-21 07:49] LABS: HEMATOCRIT 31.3 % (36.0-45.00); HEMOGLOBIN 10.4 g/dL (12.0-15.00); MEAN CELL VOLUME 86.5 fL (80.00-100.00); MEAN CORPUSCULAR HEMOGLOBIN 28.7 pg (27.00-32.0); MEAN CORPUSCULAR HGB CONC 33.2 g/dl (32.0-36.0); PLATELET COUNT 355 K/uL (150-450); RED BLOOD COUNT 3.62 M/uL (4.00-6.00)
[2023-09-21 08:22] LABS: CALCIUM 8.7 mg/dL (8.5-10.1); CREATININE SERUM 0.53 mg/dL (0.55-1.02); GFR 111.86; MAGNESIUM 1.8 mg/dL (1.8-2.4); PHOSPHOROUS 3.3 mg/dL (2.5-4.9); POTASSIUM 3.36 mEq/L (3.5-5.1)
[2023-09-23 07:50] LABS: HEMOGLOBIN 11.5 g/dL (12.0-15.00); MEAN CELL VOLUME 86.2 fL (80.00-100.00); MEAN CORPUSCULAR HEMOGLOBIN 28.3 pg (27.00-32.0); MEAN CORPUSCULAR HGB CONC 32.8 g/dl (32.0-36.0); PLATELET COUNT 390 K/uL (150-450); RED BLOOD COUNT 4.06 M/uL (4.00-6.00); RED CELL DISTRIBUTION WIDTH 17.9 % (11.5-14.5)
[2023-09-23 08:31] LABS: CALCIUM 9.5 mg/dL (8.5-10.1); CREATININE SERUM 0.44 mg/dL (0.55-1.02); GFR 138.65; MAGNESIUM 1.6 mg/dL (1.8-2.4); PHOSPHOROUS 4.7 mg/dL (2.5-4.9); POTASSIUM 3.7 mEq/L (3.5-5.1)
[2023-09-24 15:45] LABS: HEMATOCRIT 35.3 % (36.0-45.00); HEMOGLOBIN 11.7 g/dL (12.0-15.00); MEAN CELL VOLUME 85.3 fL (80.00-100.00); MEAN CORPUSCULAR HEMOGLOBIN 28.2 pg (27.00-32.0); MEAN CORPUSCULAR HGB CONC 33.1 g/dl (32.0-36.0); PLATELET COUNT 494 K/uL (150-450); RED BLOOD COUNT 4.14 M/uL (4.00-6.00); RED CELL DISTRIBUTION WIDTH 18.4 % (11.5-14.5)
[2023-09-24 16:07] LABS: CALCIUM 9.5 mg/dL (8.5-10.1); CREATININE SERUM 0.68 mg/dL (0.55-1.02); GFR 83.9; MAGNESIUM 1.9 mg/dL (1.8-2.4); PHOSPHOROUS 3.5 mg/dL (2.5-4.9); POTASSIUM 4.2 mEq/L (3.5-5.1)
[2023-09-25 20:00] LABS: HEMATOCRIT 40.4 % (36.0-45.00); HEMOGLOBIN 13.4 g/dL (12.0-15.00); MEAN CELL VOLUME 87.3 fL (80.00-100.00); MEAN CORPUSCULAR HEMOGLOBIN 28.9 pg (27.00-32.0); MEAN CORPUSCULAR HGB CONC 33.1 g/dl (32.0-36.0); PLATELET COUNT 490 K/uL (150-450); RED BLOOD COUNT 4.63 M/uL (4.00-6.00); RED CELL DISTRIBUTION WIDTH 17.9 % (11.5-14.5)
[2023-09-25 20:26] LABS: ALBUMIN 2.7 gm/dL (3.4-5.0); CALCIUM 9.8 mg/dL (8.5-10.1); CREATININE SERUM 0.64 mg/dL (0.55-1.02); GFR 89.98; MAGNESIUM 1.7 mg/dL (1.8-2.4); PHOSPHOROUS 4.2 mg/dL (2.5-4.9); POTASSIUM 4.17 mEq/L (3.5-5.1)
[2023-09-26 06:20] LABS: HEMOGLOBIN 12.6 g/dL (12.0-15.00); MEAN CELL VOLUME 85.9 fL (80.00-100.00); MEAN CORPUSCULAR HEMOGLOBIN 27.7 pg (27.00-32.0); MEAN CORPUSCULAR HGB CONC 32.2 g/dl (32.0-36.0); PLATELET COUNT 493 K/uL (150-450); RED BLOOD COUNT 4.55 M/uL (4.00-6.00); RED CELL DISTRIBUTION WIDTH 18.1 % (11.5-14.5)
[2023-09-26 06:42] LABS: ABG pCO2 35.5 mmHg (35-45); BASE EXCESS -0.7 mmol/l; SaO2 98.9 %; Tco2 24.1 mmol/l; allen test SATISFACTORY; o2 32 %; puncture site RADIAL RIGHT
[2023-09-26 07:05] LABS: ALBUMIN 2.3 gm/dL (3.4-5.0); CALCIUM 9.2 mg/dL (8.5-10.1); CREATININE SERUM 0.63 mg/dL (0.55-1.02); GFR 91.63; MAGNESIUM 1.6 mg/dL (1.8-2.4); PHOSPHOROUS 4.1 mg/dL (2.5-4.9); POTASSIUM 4.19 mEq/L (3.5-5.1)
[2023-09-27 08:17] LABS: CALCIUM 9.2 mg/dL (8.5-10.1); CREATININE SERUM 0.38 mg/dL (0.55-1.02); GFR 164.21; MAGNESIUM 2.2 mg/dL (1.8-2.4); PHOSPHOROUS 2.8 mg/dL (2.5-4.9); POTASSIUM 3.81 mEq/L (3.5-5.1)
[2023-09-27 09:23] LABS: HEMATOCRIT 36.5 % (36.0-45.00); HEMOGLOBIN 11.9 g/dL (12.0-15.00); MEAN CELL VOLUME 87.5 fL (80.00-100.00); MEAN CORPUSCULAR HEMOGLOBIN 28.5 pg (27.00-32.0); MEAN CORPUSCULAR HGB CONC 32.6 g/dl (32.0-36.0); PLATELET COUNT 433 K/uL (150-450); RED BLOOD COUNT 4.17 M/uL (4.00-6.00); RED CELL DISTRIBUTION WIDTH 18.1 % (11.5-14.5)
[2023-09-29 06:25] LABS: HEMATOCRIT 30.5 % (36.0-45.00); HEMOGLOBIN 10.2 g/dL (12.0-15.00); MEAN CORPUSCULAR HEMOGLOBIN 28.4 pg (27.00-32.0); MEAN CORPUSCULAR HGB CONC 33.4 g/dl (32.0-36.0); PLATELET COUNT 394 K/uL (150-450); RED BLOOD COUNT 3.59 M/uL (4.00-6.00); RED CELL DISTRIBUTION WIDTH 17.1 % (11.5-14.5)
[2023-09-29 07:32] LABS: ALBUMIN 1.9 gm/dL (3.4-5.0); CALCIUM 8.3 mg/dL (8.5-10.1); MAGNESIUM 1.6 mg/dL (1.8-2.4)
[2023-09-29 08:04] LABS: CREATININE SERUM 0.21 mg/dL (0.55-1.02); GFR 325.55; PHOSPHOROUS 1.5 mg/dL (2.5-4.9); POTASSIUM 2.83 mEq/L (3.5-5.1)
[2023-10-01 07:06] LABS: HEMATOCRIT 33.1 % (36.0-45.00); MEAN CELL VOLUME 84.1 fL (80.00-100.00); MEAN CORPUSCULAR HGB CONC 33.2 g/dl (32.0-36.0); PLATELET COUNT 437 K/uL (150-450); RED BLOOD COUNT 3.94 M/uL (4.00-6.00); RED CELL DISTRIBUTION WIDTH 16.6 % (11.5-14.5)
[2023-10-01 07:25] LABS: CALCIUM 8.8 mg/dL (8.5-10.1); CREATININE SERUM 0.3 mg/dL (0.55-1.02); GFR 215.71; PHOSPHOROUS 2.8 mg/dL (2.5-4.9)
[2023-10-01 07:56] LABS: POTASSIUM 2.69 mEq/L (3.5-5.1)
[2023-10-02 08:13] LABS: CALCIUM 8.6 mg/dL (8.5-10.1); CREATININE SERUM 0.3 mg/dL (0.55-1.02); GFR 215.71; MAGNESIUM 1.4 mg/dL (1.8-2.4); PHOSPHOROUS 2.8 mg/dL (2.5-4.9); POTASSIUM 3.18 mEq/L (3.5-5.1)
[2023-10-03] MEDS ORDERED: TRAM1TAB98 PO (08:20)
[2023-10-03] MEDS ORDERED: HYOSCYAMINE0.125 M1 SL (08:20)
== END 2023-10-03 14:26 | disposition home or self-care (01) | DRG 330 ==
LOC: ER 20:53 → SURH 22:05 → SURG 22:05 → SURH 23:10 → SURG 09-13 09:48
PROVIDERS: Internal Medicine Geriatric Medicine; Surgery; ADMIT Surgery; ATTEND Surgery
PROC: 02HV33Z Insertion of Infusion Device into Superior Vena Cava, Percutaneous Approach (ICD-10-PCS; 2023-09-17)
PROC: BW21ZZZ Computerized Tomography (CT Scan) of Abdomen and Pelvis (ICD-10-PCS; 2023-09-22)
PROC: 0UT24ZZ Resection of Bilateral Ovaries, Percutaneous Endoscopic Approach (ICD-10-PCS; 2023-09-25)
PROC: 0DTN4ZZ Resection of Sigmoid Colon, Percutaneous Endoscopic Approach (ICD-10-PCS; 2023-09-25)
PROC: 0UT74ZZ Resection of Bilateral Fallopian Tubes, Percutaneous Endoscopic Approach (ICD-10-PCS; 2023-09-25)
PROC: 0DBP4ZZ Excision of Rectum, Percutaneous Endoscopic Approach (ICD-10-PCS; 2023-09-25)
PROC: 0WBF0ZZ Excision of Abdominal Wall, Open Approach (ICD-10-PCS; 2023-09-25)
PROC: 0DJD8ZZ Inspection of Lower Intestinal Tract, Via Natural or Artificial Opening Endoscopic (ICD-10-PCS; 2023-09-25)
PROC: 0D1B4Z4 Bypass Ileum to Cutaneous, Percutaneous Endoscopic Approach (ICD-10-PCS; principal; 2023-09-25 12:00)
PROC: 4A12X4Z Monitoring of Cardiac Electrical Activity, External Approach (ICD-10-PCS; 2023-09-26)
DX: K94.03 Colostomy malfunction (principal); C18.5 Malignant neoplasm of splenic flexure; L02.211 Cutaneous abscess of abdominal wall; K63.2 Fistula of intestine; L98.8 Other specified disorders of the skin and subcutaneous tissue; R15.9 Full incontinence of feces; N83.332 Acquired atrophy of left ovary and fallopian tube; N83.331 Acquired atrophy of right ovary and fallopian tube

== ENCOUNTER 2023-12-22 09:28 | Emergency (ER) | payer OTHER ==
[~2023-12-22] VITALS: Ht 157.5 cm; Wt 50.8 kg
[~2023-12-22 09:28] MED LIST changes: +DILTIAZEM ER120 M2; +METFORMIN HCL500 M4; +TRAM1TAB98 PO; +VALSARTAN160 MG
== END 2023-12-22 12:45 | disposition home or self-care (01) ==
LOC: ER 09:28
DX: T85.898A Other specified complication of other internal prosthetic devices, implants and grafts, initial encounter (principal); K94.03 Colostomy malfunction; Z88.0 Allergy status to penicillin; I10 Essential (primary) hypertension; E11.9 Type 2 diabetes mellitus without complications; Z79.84 Long term (current) use of oral hypoglycemic drugs